=== PATIENT | male | born 1980 | race Caucasian/White ===

== ENCOUNTER 2019-12-07 18:36 | Emergency (ER) | payer OTHER ==
[~2019-12-07] VITALS: Ht 170.2 cm; Wt 69.4 kg
[2019-12-07 18:59] VITALS: Ht 170.2 cm; Wt 69.4 kg
[2019-12-07 20:03] VITALS: BP 118/75
== END 2019-12-07 20:03 | disposition home or self-care (01) ==
LOC: ED 18:36
DX: R21 Rash and other nonspecific skin eruption (principal); E03.9 Hypothyroidism, unspecified